=== PATIENT | male | born 1960 | race Asian ===

== ENCOUNTER 2020-03-16 11:30 | Emergency (ER) | payer BC ==
[2020-03-16 11:39] VITALS: BP 155/81; PULSE 71; TEMP 98.2; BMI 22.8
[2020-03-16] MEDS ORDERED: DIPHTH,PERTUSS(ACELL),TET 0.5 ML DISP.SYRIN IM ONE ×2 (12:13→12:14)
--- NOTE | 2020-03-16 12:19 | PDOC ---
History of Present Illness - General Chief Complaint: Laceration Stated Complaint: LACERATION Time Seen by Provider: 03/16/20 11:52 History Source: Patient Exam Limitations: No Limitations - History of Present Illness Initial Comments: 03/16/20 12:16 HISTORY OF PRESENT ILLNESS: 59-year-old male history of diabetes who presents emergency department for evaluation of laceration to left index finger while using a power circular saw. Patient reports he was cutting wood when he misjudged where the saw was clipping the volar surface of his index finger with a saw. Patient applied dressing to his finger and came to the emergency department for immediate evaluation. Patient is right-hand dominant. No recent travel or sick contacts. PAST MEDICAL HISTORY: See HPI SURGICAL HISTORY: Denies ALLERGIES: No known drug allergies REVIEW OF SYSTEMS General/Constitutional: Denies fever or chills. Denies weakness, weight change. HEENT: Denies change in vision. Denies ear pain or discharge. Denies sore throat. Cardiovascular: Denies chest pain or shortness of breath. Respiratory: Denies cough, wheezing, or hemoptysis. Gastrointestinal: Denies nausea, vomiting, diarrhea or constipation. Denies rectal bleeding. Genitourinary: Denies dysuria, frequency, or change in urination. Musculoskeletal: Denies joint or muscle swelling or pain. Denies neck or back pain. Skin and breasts: See HPI Neurologic: Denies headache, vertigo, loss of consciousness, or loss of sensation. Psychiatric: Denies depression or anxiety. Endocrine: Denies increased thirst. Denies abnormal weight change. Hematologic/Lymphatic: Denies anemia, easy bleeding, or history of blood clots. Allergic/Immunologic: Denies hives or skin allergy. Denies latex allergy. PHYSICAL EXAM General Appearance: Well-appearing, appropriately dressed. No apparent distress, no intoxication. Musculoskeletal/Extremities: Normal inspection. FROM including flexion and extension of affected finger. No malrotation present. Normal capillary refill. Pelvis Stable. No CVA tenderness. No tenderness to extremities, pedal edema, swelling, erythema or deformity. Neurovascularly intact. Integumentary: Approximate 2 cm flap laceration present to the volar aspect of the left index finger over the second phalanx. Past History - Medical History Allergies/Adverse Reactions: Allergies Allergy/AdvReac Type Severity Reaction Status Date / Time No Known Allergies Allergy Verified 03/16/20 11:35 Home Medications: Ambulatory Orders Cephalexin Monohydrate [Keflex -] 500 mg PO Q6H #28 capsule 03/16/20 - Psycho-Social/Smoking History Smoking History: Never smoked - Substance Abuse Hx (Audit-C & DAST Scrn) How often the patient has a drink containing alcohol: Never Score: In Men: 4 or > Positive; In Women: 3 or > Positive: 0 Screen Result (Pos requires Nsg. Audit-10AR): Negative *Physical Exam - Vital Signs Last Vital Signs Temp Pulse Resp BP Pulse Ox 98.2 F 71 18 155/81 99 03/16/20 11:35 03/16/20 11:35 03/16/20 11:35 03/16/20 11:35 03/16/20 11:35 Procedures - Consent Consent obtained: Verbal, From Patient - Laceration/Wound Repair Left Volar Finger 2nd digit Wound Length: to 2.5 cm Wound Explored: clean Wound's Depth, Shape: superficial, flap Irrigated w/ Saline: Yes Betadine Prep: Yes Anesthesia: 1% Lidocaine Amount of Anesthetic (ccs): 5 (Ring block) Wound Debrided: minimal Wound Repaired With: Sutures Suture Size/Type: 5:0 Number of Sutures: 3 Layer Closure: No Sterile Dressing Applied: Yes Splint Applied: Yes Sling Applied: Yes Progress: 03/16/20 12:19 Patient tolerated well. Medical Decision Making - Medical Decision Making 03/16/20 12:19 A/P: 59-year-old male with laceration to left index finger while using a power saw Approximate 2 cm flap laceration to the volar aspect of the left index finger over the second phalanx Full flexion and extension of left index finger without difficulty Capillary refill and sensation distal to injury are within normal limits Laceration repair-see procedure note for details [facility] Discharge home with prescription for Keflex as patient is diabetic Portions of this note have been documented using voice recognition software. As a result, errors may occur in the purchasing administrator process. Effort has been made to correct all grammatical and purchasing administrator error, but some may have been missed which may produce sporadic inaccurate purchasing administrator or nonsensical phrases. 03/16/20 12:20 Discharge - Discharge Information Problems reviewed: Yes Clinical Impression/Diagnosis: Laceration of left index finger Qualifiers: Encounter type: initial encounter Damage to nail status: without damage Foreign body presence: without foreign body Qualified Code(s): S61.211A - Laceration without foreign body of left index finger without damage to nail, initial encounter Condition: Stable Disposition: HOME - Admission No - Additional Discharge Information Prescriptions: Cephalexin Monohydrate [Keflex -] 500 mg PO Q6H #28 capsule - Follow up/Referral Referrals: Yfn Dubois MD [Primary Care Provider] - - Patient Discharge Instructions Additional Instructions: Keep wound clean and dry Avoid strenuous activity/exercise to create a hot or sweaty environment until sutures are removed Reapply bacitracin ointment 2 times a day until sutures are removed Return to emergency Department or private physician in 7-10 days for suture removal May use Tylenol or Motrin for pain relief Return immediately to emergency department for redness, swelling, pain, or signs of infection - Post Discharge Activity
== END 2020-03-16 12:18 | disposition home or self-care (01) ==
LOC: JERFT 11:30
PROC: 0HQGXZZ Repair Left Hand Skin, External Approach (ICD-10-PCS; principal; 2020-03-16)
PROC: 3E0234Z Introduction of Serum, Toxoid and Vaccine into Muscle, Percutaneous Approach (ICD-10-PCS; 2020-03-16)
DX: S61.211A Laceration without foreign body of left index finger without damage to nail, initial encounter (principal)
CPT/HCPCS: 90715; 99284-25

== ENCOUNTER 2020-03-25 17:22 | Emergency (ER) | payer BC ==
--- NOTE | 2020-03-25 17:30 | PDOC ---
Rapid Medical Evaluation Time Seen by Provider: 03/25/20 17:29 Medical Evaluation: Allergies Allergy/AdvReac Type Severity Reaction Status Date / Time No Known Allergies Allergy Verified 03/16/20 11:35 03/25/20 17:29 I performed a brief in-person evaluation of this patient. Pt is a 59 y/o male who presents to the ED for suture removal to the L index finger. No complaints. H/o HTN, DM. Pertinent physical exam findings: Left IF wound well healing, no sign of infection I have ordered the following: none Patient to proceed to ED for further evaluation. Discharge Disposition - Diagnosis Visit for suture removal - Referrals Referrals: Louann Adams MD [Primary Care Provider] - - Patient Instructions - Post Discharge Activity
[2020-03-25 17:33] VITALS: BP 154/89; PULSE 78; TEMP 98.4; BMI 23.1
--- NOTE | 2020-03-25 17:46 | PDOC ---
History of Present Illness - General Chief Complaint: Suture/Staple Removal(Here) Stated Complaint: SUTURE REMOVAL Time Seen by Provider: 03/25/20 17:29 - History of Present Illness Initial Comments: 03/25/20 17:44 59-year-old male presents for evaluation of suture removal left second finger from sutures placed 9 days ago. He has had no sequelae since suture placement. Past History - Medical History Allergies/Adverse Reactions: Allergies Allergy/AdvReac Type Severity Reaction Status Date / Time No Known Allergies Allergy Verified 03/16/20 11:35 Home Medications: Ambulatory Orders Cephalexin Monohydrate [Keflex -] 500 mg PO Q6H #28 capsule 03/16/20 COPD: No Diabetes: Yes HTN: Yes - Psycho-Social/Smoking History Smoking History: Never smoked Have you smoked in the past 12 months: No - Substance Abuse Hx (Audit-C & DAST Scrn) How often the patient has a drink containing alcohol: Never Score: In Men: 4 or > Positive; In Women: 3 or > Positive: 0 Screen Result (Pos requires Nsg. Audit-10AR): Negative In the last yr the pt used illegal drug/Rx for NonMed reason: No Score: Yes response is considered Positive: 0 Screen Result (Positive result requires Nsg. 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 They are in agreement with the treatment plan all questions were answered to their satisfaction. Understanding for follow-up without fail was also conveyed to the patient. Again they are in agreement. Discharge - Discharge Information Problems reviewed: Yes Clinical Impression/Diagnosis: Visit for suture removal Condition: Stable Disposition: HOME - Admission No - Follow up/Referral Referrals: Louann Adams MD [Primary Care Provider] - Hunter Castillo MD [Staff Physician] - - Patient Discharge Instructions Additional Instructions: Please leave the area clean and dry for the next 48 hours. After 48 hours you may gently wash the area with soap and water and pat it dry and leave it open to air. Do not apply any ointment such as bacitracin or Neosporin. Without fail please follow-up with your primary care physician in 2 to 3 days for a wound check. Return to the emergency room for further issues. He may follow-up with orthopedic hand surgery in 1 to 2 days for wound check or return to the emergency room in 48 hours should you have further issues and are unable to get an appointment with orthopedics hand surgery. - Post Discharge Activity
--- OUTSIDE RECORDS SUMMARY | 2020-03-25 18:25 | XMS ---
:1960 [facility] Support Name Relationship Address Phone [email or web address] [place] [address] SHANEKA THACKER [address] [place] [address] SHANEKA THACKER Spouse [address] [place] [address] Re-disclosure Warning The records that you are about to access may contain information from federally- assisted alcohol or drug abuse programs. If such information is present, then the following federally mandated warning applies: This information has been disclosed to you from records protected by federal confidentiality rules (42 CFR part 2). The federal rules prohibit you from making any further disclosure of this information unless further disclosure is expressly permitted by the written consent of the person to whom it pertains or as otherwise permitted by 42 CFR part 2. A general authorization for the release of medical or other information is NOT sufficient for this purpose. The Federal rules restrict any use of the information to criminally investigate or prosecute any alcohol or drug abuse patient.The records that you are about to access may contain highly sensitive health information, the redisclosure of which is protected by Article 27-F of the [facility] Public Health law. If you continue you may haveaccess to information: Regarding HIV / AIDS; Provided by facilities licensed or operated by the [facility] Office of Mental Health; or Provided by the [facility] Office for People With Developmental Disabilities. If such information is present, then the following [facility] mandated warning applies: This information has been disclosed to you from confidential records which are protected by state law. State law prohibits you from making any further disclosure of this information without the specific written consent of the person to whom it pertains, or as otherwise permitted by law. Any unauthorized further disclosure in violation of state law may result in a fine or custodial sentence or both. A general authorization for the release of medical or other information is NOT sufficient authorization for further disclosure. Allergies and Adverse Reactions Type Description Substance Reaction Status Data Source(s ) No Known Allergies No Known Allergies No Known Allergies eCW3 ([facility]) No Information No Information No Information eC W2 ([facility]) No Known Allergies No Known Allergies No Known Allergies eCW2 ([facility]) No Known Allergies No Known Allergies No known allergies eCW3 ([facility]) Encounters Encounter Providers Location Date Indications Data Source(s ) Outpatient [place] [facility] 11/11/2018 eCW3 ([facility] A28 12:00:00 AM [facility] EDT - Care) 11/11/2018 12:00:00 AM EDT Outpatient [facility] 09/07/2018 eCW3 ([facility] A28 12:00:00 AM [facility] EST - Care) 09/07/2018 12:00:00 AM EST [facility] 04/14/2018 eCW2 ([facility] 04/14/2018 eCW2 ([facility] 12:00:00 AM [facility] EDT Care) [facility] 04/11/2018 eCW2 ([facility] 12:00:00 AM [facility] EDT Care) [facility] 04/08/2018 eCW2 ([facility] 12:00:00 AM [facility] EDT Care) [facility] 02/25/2018 eCW2 ([facility] 12:00:00 AM [facility] EDT Care) [facility] 2017 eCW2 ([facility] 12:00:00 AM [facility] EDT Care) [facility] 12/07/2017 eCW2 ([facility] 12:00:00 AM [facility] EDT Care) [facility] 11/04/2017 eCW2 ([facility] 12:00:00 AM [facility] ED[facility]) [facility] 10/27/2017 eCW2 ([facility] 12:00:00 [facility] ED[facility]) [facility] 10/26/2017 eCW2 ([facility] 12:00:00 AM [facility] ED[facility] Care) [facility] 08/31/2017 eCW2 ([facility] 12:00:00 AM [facility] EST Care) [facility] 08/31/2017 eCW2 ([facility] 12:00:00 AM [facility] EST Care) [facility] 07/09/2017 eCW2 ([facility] 12:00:00 AM [facility] EST Care) [facility] 05/24/2017 eCW2 ([facility] 12:00:00 AM [facility] EST Care) [facility] 05/06/2017 eCW2 ([facility] 12:00:00 AM [facility] EDT Care) [facility] 05/04/2017 eCW2 ([facility] 12:00:00 AM [facility] EDT Care) [facility] 04/02/2017 eCW2 ([place] [facility] 12:00:00 AM [facility] EDT Care) [facility] 01/23/2017 eCW2 ([facility] 12:00:00 AM [facility] EDT Care) [facility] 10/15/2016 eCW2 ([facility] 12:00:00 AM [facility] ED[facility] Care) [facility] 09/25/2016 eCW2 ([facility] 12:00:00 AM [facility] ED[facility] Care) [facility] 09/23/2016 eCW2 ([facility] 12:00:00 AM [facility] ED[facility] Care) [facility] 09/23/2016 eCW2 ([facility] 12:00:00 AM [facility] EDT Care) [facility] 06/17/2016 eCW2 ([facility] 12:00:00 AM [facility] EST Care) [facility] 03/20/2016 eCW2 ([facility] 12:00:00 AM [facility] EDT Care) [facility] 03/18/2016 eCW2 ([facility] 12:00:00 AM [facility] EDT Care) [facility] 02/12/2016 eCW2 ([facility] 12:00:00 AM [facility] EDT Care) [facility] 01/07/2016 eCW2 ([facility] 12:00:00 AM [facility] EDT Care) [facility] 01/01/2016 eCW2 ([facility] 12:00:00 AM [facility] ED[facility] Care) [facility] 12/31/2015 eCW2 ([facility] 12:00:00 AM [facility] EDT Care) [facility] 11/05/2015 eCW2 ([facility] 12:00:00 AM [facility] EDT Care) [facility] 11/04/2015 eCW2 ([facility] 12:00:00 AM [facility] EDT Care) [facility] 05/19/2014 eCW2 ([facility] 12:00:00 AM [facility] EST Care) [facility] 05/12/2014 eCW2 ([facility] 12:00:00 AM [facility] EDT Care) [facility] 05/12/2014 eCW2 ([facility] 12:00:00 AM [facility] EDT Care) [facility] 05/12/2014 eCW2 ([facility] 12:00:00 AM [facility] EDT Care) [facility] 05/05/2014 eCW2 ([facility] 12:00:00 AM [facility] EDT Care) [facility] 03/31/2014 eCW2 ([facility] 12:00:00 AM [facility] EDT Care) [facility] 03/22/2014 eCW2 ([facility] 12:00:00 AM [facility] EDT Care) [facility] 03/15/2014 eCW2 ([facility] 12:00:00 AM [facility] EDT Care) Immunizations Vaccine Date Status Description Data Source(s) Pneumococcal conjugate PCV 09/07/2018 completed e CW3 ([facility] [place] [facility] 08:30:00 AM [facility]) New in 2011. IIV4 04/08/2018 completed eCW2 ([facility] 12:02:00 PM ED Health Care) No Known Immunizations completed eCW2 ([facility]) Medications Medication Brand Start Product Dose Route Administrative Pharmacy [facility] Indications Reaction Description Data Name Date Form Instructions Instructions Source(s) Famotidine Famoti .0 active Famotidi ne eCW3 20 MG Oral dine 2018 {tabl 20 MG ([facility] Tablet 20 MG 12:00: et_at [place] 00 AM _bedt Health EST maria esther} Care) Famotidine Famoti .0 active Famotidi ne eCW3 20 MG Oral dine 2018 {tabl 20 MG ([facility] Tablet 20 MG 12:00: et_at [place] 00 AM _bedt Health EST maria esther} Care) atorvastati Atorva .0 active Atorvas tatin eCW3 n 40 MG statin 2018 {tabl Calcium 40 (Hu dson Oral Tablet Calciu 12:00: et} MG [facility] r Atorvastati m 40 00 AM Health n Calcium MG EDT Care) 40 MG atorvastati Atorva .0 active Atorvas tatin eCW3 n 40 MG statin 2018 {tabl Calcium 40 (Hu dson Oral Tablet Calciu 12:00: et} MG [facility] r Atorvastati m 40 00 AM Health n Calcium MG EDT Care) 40 MG Metformin Metfor 04/08/ active 1 tablet eCW2 hydrochlori min 2018 with a meal ( [facility] de 1000 MG HCl 12:00: [place] Oral Tablet 1000 00 AM Health Metformin mg EDT Care) HCl 1000 mg Metformin Metfor .0 active Metformin eCW3 hydrochlori min 2018 {tabl HCl 1000 mg ([facility] de 1000 MG HCl 12:00: et_wi [place] [facility]) HCl 1000 mg Metformin Metfor .0 active Metformin eCW3 hydrochlori min 2018 {tabl HCl 1000 mg ([facility] de 1000 MG HCl 12:00: et_wi [place] [facility]} Care) HCl 1000 mg Levothyroxi Synthr 10/27/ active Synthro id 50 eCW3 ne Sodium oid 50 2018 MCG ([facility] 0.05 MG MCG 12:00: [place] Oral Tablet 00 AM Health [Synthroid] EDT Care) Synthroid 50 MCG Levothyroxi Synthr 10/27/ active Synthro id 50 eCW3 ne Sodium oid 50 2018 MCG ([facility] 0.05 MG MCG 12:00: [place] Oral Tablet 00 AM Health [Synthroid] EDT Care) Synthroid 50 MCG Levothyroxi Synthr 10/27/ active 1 table t on eCW2 ne Sodium oid 50 2018 an empty (Hud son 0.05 MG MCG 12:00: stomach in [facility] r Oral Tablet 00 AM the morning Health [Synthroid] EDT Care) Synthroid 50 MCG Flonase 50 Flonas 10/26/ active 2 puff i n eCW2 MCG/ACT e 50 2018 each nostril (H[facility] son MCG/AC 12:00: [place] T 00 AM Health EDT Care) Ibuprofen Ibupro 10/26/ active Ibuprofen eCW3 600 MG Oral fen 2018 600 MG ([place] Tablet 600 MG 12:00: [place] 00 AM Health EDT Care) Ibuprofen Ibupro 10/26/ active 1 tablet eCW2 600 MG Oral fen 2018 with food or ([facility] Tablet 600 MG 12:00: milk as [place] 00 AM needed Health EDT Care) FLONASE 50 FLONAS 10/26/ 2.0 active FLONASE 50 eCW3 MCG/ACT E 50 2017 {puff MCG/ACT ([facility] MCG/AC 12:00: _in_e [place] T 00 AM ach_n Health EDT ostri Care) l} Ibuprofen Ibupro 10/26/ active Ibuprofen eCW3 600 MG Oral fen 2018 600 MG ([place] [facility] Tablet 600 MG 12:00: [place] 00 AM Health EDT Care) FLONASE 50 FLONAS 10/26/ 2.0 active FLONASE 50 eCW3 MCG/ACT E 50 2017 {puff MCG/ACT ([facility] MCG/AC 12:00: _in_e [place] T 00 AM ach_n Health EDT ostri Care) l} Lisinopril Lisino 09/23/ active 1 tablet eCW2 20 MG Oral pril 2016 ([facility] Tablet 20 MG 12:00: [place] 00 AM Health EDT Care) Lisinopril Lisino 15/ 1.0 active Lisinopr il eCW3 20 MG Oral pril 2016 {tabl 20 MG ([facility] Tablet 20 MG 12:00: et} [place] 00 AM Health EDT Care) Lisinopril Lisino 15/ 1.0 active Lisinopr il eCW3 20 MG Oral pril 2016 {tabl 20 MG ([facility] Tablet 20 MG 12:00: et} [place] 00 AM Health EDT Care) Lancets - Lancet 12/30/ active Lancets - eCW3 s - 2015 ([facility] 12:00: [place] 00 AM Health EDT Care) Isopropyl Isopro 12/30/ active Isopropyl eCW3 Alcohol pyl 2016 Alcohol ([facility] Wipes 70 % Alcoho 12:00: Wipes 70 % [place] l 00 AM Health Wipes EDT Care) 70 % Glucose UNK 12/30/ active As Directed e CW2 Test Strips 2015 ([facility] Compatiable 12:00: [place] with 00 AM Health Patients EDT Care) Machine Isopropyl Isopro 12/30/ active as direct ed eCW2 Alcohol pyl 2015 ([facility] Wipes 70 % Alcoho 12:00: [place] l 00 AM Health Wipes EDT Care) 70 % Isopropyl Isopro 12/30/ active Isopropyl eCW3 Alcohol pyl 2015 Alcohol ([facility] Wipes 70 % Alcoho 12:00: Wipes 70 % [place] l 00 AM Health Wipes EDT Care) 70 % Glucose UNK 12/30/ active Glucose Test eCW3 Test Strips 2016 Strips ([place] [facility] Compatiable 12:00: Compatiable [place] with 00 AM with Health Patients EDT Patients Care) Machine Machine Lancets - Lancet 12/30/ active Lancets - eCW3 s - 2015 ([facility] 12:00: [place] 00 AM Health EDT Care) Glucometer UNK 12/30/ active As directe d eCW2 NIDD 2015 ([facility] 12:00: [place] 00 AM Health EDT Care) Lancets - Lancet 12/30/ active as direct ed eCW2 s - 2016 ([facility] 12:00: [place] 00 AM Health EDT Care) Glucose UNK 12/30/ active Glucose Test eCW3 Test Strips 2016 Strips ([place] [facility] Compatiable 12:00: Compatiable [place] with 00 AM with Health Patients EDT Patients Care) Machine Machine Unknown complet eCW2 Medications ed ([facility]) Insurance Providers Payer name Policy type / Policy ID Covered Covered republican's Policy Plan Coverage type republican ID relationship to Hanson Information hanson PPO [id number] SP [id number] BC PPO [id number] SP [id number] PPO [id number] SP [id number] Problems, Conditions, and Diagnoses Code Display Name Description Problem Effective Data Type Dates Source(s) E78.5 Dyslipidemia Dyslipidemia Problem 09/07/2018 eCW3 12:00:00 AM ([facility]) K21.9 Gastroesophageal reflux Gastroesophageal reflux Problem 09/07/2018 eCW3 disease without disease without 12:00:00 AM ( dson esophagitis esophagitis [facility]) E03.9 Adult hypothyroidism Adult hypothyroidism Problem 04/08 eCW3 12:00:00 AM ([facility]) E03.9 Adult hypothyroidism Adult hypothyroidism Problem 04/08 eCW2 12:00:00 AM ([facility]) E03.9 Hypothyroidism Hypothyroidism Problem 10/26/2017 eCW3 (acquired) (acquired) 12:00:00 AM ([facility]) E03.9 Hypothyroidism Hypothyroidism Problem 10/26/2017 eCW2 (acquired) (acquired) 12:00:00 AM ([facility]) H52.4 Presbyopia of both eyes Presbyopia of both eyes Problem 05/31/2017 eCW3 12:00:00 AM ([facility]) H25.13 Nuclear age-related Nuclear age-related Problem 017 eCW3 cataract, both eyes cataract, both eyes 12:00:0 0 AM ([facility]) H52.4 Presbyopia of both eyes Presbyopia of both eyes Problem 05/31/2017 eCW2 12:00:00 AM ([facility]) H25.13 Nuclear age-related Nuclear age-related Problem 017 eCW2 cataract, both eyes cataract, both eyes 12:00:0 0 AM ([facility]) I10 Hypertension Hypertension Problem 09/23/2016 eCW3 12:00:00 AM ([facility]) I10 Hypertension Hypertension Problem 09/23/2016 eCW2 12:00:00 AM ([facility]) K59.00 Constipation Constipation Problem 06/17/2016 eCW2 12:00:00 AM ([facility]) E78.1 Hypertriglyceridemia Hypertriglyceridemia Problem 03/24 eCW3 12:00:00 AM ([facility]) E78.1 Hypertriglyceridemia Hypertriglyceridemia Problem 03/24 eCW2 12:00:00 AM ([facility]) E11.9 Type 2 diabetes Type 2 diabetes Problem 12/31/2015 eCW3 mellitus mellitus 12:00:00 AM ([facility]) E11.9 Type 2 diabetes Type 2 diabetes Problem 12/31/2015 eCW2 mellitus mellitus 12:00:00 AM ([facility]) XX No diagnosis Standing Order Problem 12/31/2015 eCW2 12:00:00 AM ([facility]) 272.4 Hyperlipidemia Hyperlipidemia Problem 05/19/2014 eCW2 12:00:00 AM ([facility]) Surgeries/Procedures Procedure Description Date Indications Data Source(s) RMVL IMPACTED CERUMEN 04/08/2018 eCW2 ( [facility] SPX 1/BOTH EARS 12:00:00 AM Health Care) EDT GLUC BLD GLUC MNTR DEV 04/08/2018 eCW2 ([facility] CLEARED FDA SPEC HOME 12:00:00 AM Health Care) USE EDT COLLECTION CAPILLARY 04/08/2018 eCW2 ([facility] BLOOD SPECIMEN 12:00:00 AM Health Care) EDT A-Influenza 04/08/2018 eCW2 ([facility] mark anthony [employer] 12:00:00 AM Health Care) EDT IM ADM THRU 18YR ANY 04/08/2018 eCW2 ([facility] RTE 1ST/ONLY COMPT 12:00:00 AM Health Ca re) VAC/TOX EDT SCREENING TEST VISUAL 04/08/2018 eCW2 ( [facility] ACUITY QUANTITATIVE 12:00:00 AM Health C are) BILAT EDT HEMOGLOBIN 04/08/2018 eCW2 ([facility] mark anthony GLYCOSYLATED A1C 12:00:00 AM Health Care ) EDT No Known procedures No Known procedures e CW2 ([facility]) Results ID Date Data Source Finger Stick Glucose with 09/07/2018 10:25:38 AM EST eCW3 ([facility] Glucometer, In House.1 Care) Name Value Range Interpretation Code Description Data Radha rce(s) Supporting Document(s ) 162 Capillary Glucose eCW3 ([facility]) Capillary eCW3 ([facility] GlucoseTest #2 [facility]) Capillary Glucose eCW3 ([facility] Test#3 [facility]) ID Date Data Source Glyco-Hemoglobin A1c, In 09/07/2018 10:25:28 AM EST eCW3 ([facility]) House.0 Name Value Range Interpretation Description Data Sup porting Code Source(s) Document(s ) Hemoglobin 9.5 Glyco-Hemoglobi eCW3 ([facility] A1c/Hemoglobin n A1C [facility] .total in Care) Blood . eCW3 ([facility]) ID Date Data Source Finger Stick Glucose with 04/08/2018 12:00:00 AM EDT eCW2 ([facility] Glucometer, In House.6 Care) Name Value Range Interpretation Code Description Data Radha rce(s) Supporting Document(s ) Capillary eCW2 ([facility] GlucoseTest #2 [facility]) 120 65 mg/dL - Capillary eCW2 ([facility] 110 mg/dL Glucose [facility]) Capillary eCW2 ([facility] Glucose Test#3 [facility]) ID Date Data Source COMPREHENSIVE METABOLIC ([id number] 04/08/2018 12:00:00 AM eC W2 ([facility] EDT Care) Name Value Range Interpretation Description Data Sup porting Code Source(s) Document(s ) Albumin 5.1 3.5-5.2 Albumin eCW2 [Mass/volume] in ([facility] or [facility]) Globulin 2.4 1.7-3.7 Globulin eCW2 [Mass/volume] in ([facility]) Protein 7.5 5.9-8.4 Total Protein eCW2 [Mass/volume] in ([facility] or [facility]) Chloride 101 96-108 Chloride eCW2 [Moles/volume] in ([facility] or [facility]) Potassium 3.9 3.5-5.5 Potassium eCW2 [Moles/volume] in ([facility] or [facility]) Albumin/Globulin 2.1 1.1-2.9 A/G Ratio eCW2 [Mass Ratio] in ([facility] or [facility]) Sodium 141 135-147 Sodium eCW2 [Moles/volume] in ([facility] or [facility]) Carbon dioxide, 24 22-29 CO2 eCW2 total ([facility] [Moles/volume] in [place] Serum or [facility]) Mycoplasma 13.2 10.0-28 BUN/Creat eCW2 pneumoniae DNA .0 Ratio ([facility] [Units/volume] in [place] Blood by Probe and Health target Care) amplification method Glomerular 110 >or=60 e-GFR, eCW2 filtration ([facility] rate/1.73 sq M [place] predicted among Health blacks [Volume Care) Rate/Area] in Serum or Plasma by Creatinine-based formula (MDRD) Urea nitrogen 12 6-20 BUN eCW2 [Mass/volume] in ([facility] Serum or [facility]) Creatinine 0.91 0.67-1. Creatinine eCW2 [Mass/volume] in 31 ([facility] or [facility]) Glomerular 95 >or=60 e-GFR eCW2 filtration ([facility] rate/1.73 sq [place] M.predicted [Volume Health Rate/Area] in Serum Care) or Plasma by Creatinine-based formula (MDRD) Glucose 119 70-99 Glucose eCW2 [Mass/volume] in ([facility] Serum or [facility]) Alkaline 111 40-156 Alk Phos eCW2 phosphatase ([facility] [Enzymatic [place] activity/volume] in [facility] Serum or Plasma Care) Aspartate 27 <40 AST eCW2 aminotransferase ([facility] [Enzymatic [place] activity/volume] in [facility] Serum or Plasma Care) Calcium 9.5 8.6-10. Calcium eCW2 [Mass/volume] in 4 ([facility] or [facility]) Alanine 42 <41 ALT eCW2 aminotransferase ([facility] [Enzymatic [place] activity/volume] in [facility] Serum or Plasma Care) Bilirubin.total 0.6 <1.2 Bilirubin, eCW2 [Mass/volume] in Total ([facility] or [facility]) ID Date Data Source MICROALBUMIN, RAND 04/08/2018 12:00:00 AM EDT eCW2 ([facility] URINE/CREAT (BIOREFERENCE).4 Care) Name Value Range Interpretation Description Data Sup porting Code Source(s) Document(s ) Microalbumin <1.2 Not MICROALBUMIN,R eCW2 ([facility] [Mass/volume] Estab. ANDOM [facility] in Urine Care) Fungus 8.5 <30.0 Album/creat eCW2 ([facility] identified in ratio, urine [facility] Unspecified Care) specimen by Fungus stain Microalbumin 140.6 Not CREAT.URN.TIME eCW2 ([facility] [Mass/volume] Estab. D/RAND [facility] in Urine Care) ID Date Data Source URINALYSIS, ROUTINE.3 04/08/2018 12:00:00 AM EDT eCW2 ([facility]) Name Value Range Interpretation Description Data Sup porting Code Source(s) Document(s ) 1.017 1.003-1.03 Specific eCW2 0 [place] Ur ([facility]) Protein NEGATIVE NEGATIVE Protein, Urine eCW2 [Mass/volum ([facility] e] in Urine [place] by [facility]) test strip Glucose NEGATIVE NEGATIVE Glucose, Urine eCW2 [Mass/volum ([facility] e] in Urine [place] by [facility]) test strip NEGATIVE NEGATIVE Ketone, Urine eCW2 ([facility]) 5.5 5.0-8.0 pH Urine eCW2 ([facility]) NEGATIVE NEGATIVE Nitrites Urine eCW2 ([facility]) NONE NONE Crystals Urine eCW2 ([facility]) NEGATIVE NEGATIVE Blood, Urine eCW2 ([facility]) 0.2 0.2-1.0 Urobilinogen eCW2 Urine ([facility]) NEGATIVE NEGATIVE Bilirubin, eCW2 Urine ([facility]) NONE SEEN NONE SEEN RBC, Urine eCW2 ([facility]) NONE NONE-FEW Epithelial eCW2 Cells, Ur ([facility]) 0-4 0-4 Cast, Hyaline, eCW2 Urine ([facility]) NONE SEEN 0-1 Cast, RBC, eCW2 Urine ([facility]) 0-4 0-4 WBC, Urine eCW2 ([facility]) NEGATIVE NEGATIVE Leukocyte eCW2 Esterase ([facility]) NONE NONE-FEW Bacteria, eCW2 Urine ([facility]) NONE NONE Crystal Amt. eCW2 Urine ([facility]) NONE SEEN 0-1 Cast, eCW2 Granular, Ur ([facility]) Color of YELLOW YELLOW, Color eCW2 Urine STRAW, ([facility]) CLEAR CLEAR Character eCW2 ([facility]) ID Date Data Source TSH ([id number] 04/08/2018 12:00:00 AM EDT eCW2 ([facility]) Name Value Range Interpretation Description Data Sup porting Code Source(s) Document(s ) Carbamazepine 4.760 0.178-4. TSH eCW2 ([facility] [Mass/volume] in [address] [place] [address] Serum or Plasma Care) ID Date Data Source LIPID PANEL ([facility] 04/08/2018 12:00:00 AM EDT eCW2 ([facility] [employer]).1 Care) Name Value Range Interpretation Description Data Sup porting Code Source(s) Document(s ) Deprecated 44 >40 HDL CHOL., eCW2 ([facility] [Mass/volume] Care) in Serum or Plasma Deprecated 178 <200 Cholesterol eCW2 ([facility] [Mass/volume] Care) in Serum or Plasma Deprecated 25 >14 HDL as % of eCW2 ([facility] Cholesterol [facility] [Mass/volume] Care) in Serum or Plasma Deprecated 4.0 <7.4 Chol/HDL Ratio eCW2 ([facility] [Mass/volume] Care) in Serum or Plasma Deprecated 2.52 <3.56 LDL/HDL Ratio eCW2 ([facility] [Mass/volume] Care) in Serum or Plasma Deprecated 115 <150 Triglycerides eCW2 ([facility] [Mass/volume] Care) in Serum or Plasma Deprecated 111 <100 LDL Cholesterol eCW2 ([facility] [Mass/volume] Care) in Serum or Plasma Deprecated 23 7-32 VLDL, CALCULATED eCW2 ([facility] [Mass/volume] Care) in Serum or Plasma Deprecated 134 <130 Non-HDL eCW2 ([facility] [Mass/volume] Care) in Serum or Plasma ID Date Data Source Glyco-Hemoglobin A1c, In 04/08/2018 12:00:00 AM EDT eCW2 ([facility]) House.0 Name Value Range Interpretation Description Data Sup porting Code Source(s) Document(s ) Hemoglobin 7.6 <6.5% - Glyco-Hemoglob eCW2 ([facility] A1c/Hemoglobin in A1C [facility] .total in Care) Blood . eCW2 ([facility]) Procedure Social History Code Duration Value Status Description Data Source(s ) Smoking Unknown if ever completed Unknown if ever eCW3 ([facility] smoked smoked Health Care) Smoking Unknown if ever completed Unknown if ever eCW2 ([facility] smoked smoked Health Care) Smoking Unknown if ever completed Unknown if ever eCW2 ([facility] smoked smoked Health Care) Smoking Unknown if ever completed Unknown if ever eCW3 ([facility]) Vital Signs ID Date Data Source UNK Name Value Range Interpretation Code Description Data Source(s) Diastolic blood 78 mm[Hg] 78 mm[Hg] eCW3 ([facility]) Systolic blood 149 mm[Hg] 149 mm[Hg] eCW3 ([facility]) Body temperature 98.6 [degF] 98.6 [degF] eCW3 ( [facility]) Heart rate 18 /min 18 /min eCW3 ([facility]) Body mass index 22.73 kg/m2 22.73 kg/m2 eCW3 ([facility] (BMI) [Ratio] [facility]) Body weight 143.0 143.0 [lb_av] eCW3 ([place] [lb_av] [facility]) Body height 66.5 [in_i] 66.5 [in_i] eCW3 ([facility]) Diastolic blood 62 mm[Hg] 62 mm[Hg] eCW3 ([facility]) Systolic blood 167 mm[Hg] 167 mm[Hg] eCW3 ([facility]) Body temperature 97.8 [degF] 97.8 [degF] eCW3 ( [facility]) Heart rate 20 /min 20 /min eCW3 ([facility]) Body mass index 23.43 kg/m2 23.43 kg/m2 eCW3 ([facility] (BMI) [Ratio] [facility]) Body weight 147.4 147.4 [lb_av] eCW3 ([place] [lb_av] [facility]) Body height 66.5 [in_i] 66.5 [in_i] eCW3 ([facility]) Diastolic blood 69 mm[Hg] 69 mm[Hg] eCW2 ([facility]) Systolic blood 162 mm[Hg] 162 mm[Hg] eCW2 ([facility]) Body temperature 98.6 [degF] 98.6 [degF] eCW2 ( [facility]) Heart rate 18 /min 18 /min eCW2 ([facility]) Body weight 155.4 155.4 [lb_av] eCW2 ([place] [facility] [lb_av] [facility]) Body height 66.5 [in_us] 66.5 [in_us] eCW2 ([facility]) Patient Treatment Plan of Care Planned Activity Planned Date Details Description Data Source (s) Famotidine 20 MG Oral 09/07/2018 12:00:00 eCW3 ([place] [facility]) Metformin hydrochloride 04/08/2018 12:00:00 eCW2 ([place] 1000 MG Oral Tablet [facility]) Metformin hydrochloride 04/08/2018 12:00:00 eCW3 ([facility] 1000 MG Oral Tablet [facility]) Levothyroxine Sodium 0.05 10/27/2017 12:00:00 eCW2 ([place] MG Oral Tablet [facility]) [Synthroid] Lisinopril 20 MG Oral 09/23/2016 12:00:00 eCW2 ([facility] Tablet [facility]) Lancets - 12/31/2015 12:00:00 [facility] Glucose Test Strips 12/31/2015 12:00:00 e CW3 ([place] Compatiable with Patients [facility]) Machine
== END 2020-03-25 17:48 | disposition home or self-care (01) ==
LOC: JERFT 17:22 → JER 17:22 → JERFT 17:48
DX: Z48.02 Encounter for removal of sutures (principal)
CPT/HCPCS: 99281-25

== ENCOUNTER 2021-09-08 19:56 | Observation (INO) | payer BC ==
[2021-09-08 20:02] VITALS: BMI 23.1
[2021-09-08 21:29] LABS: BASO % 0.7 % (0-2.0); EOS % 4.9 % (0-4.5); HEMATOCRIT 42.8 % (35.4-49); HEMOGLOBIN 14.2 GM/dL (11.7-16.9); MCH 28.5 pg (25.7-33.7); MCHC 33.1 g/dl (32.0-35.9); MEAN CELL VOLUME 86.1 fl (80-96); MEAN PLT VOLUME 9.5 fl (7.5-11.1); MONO % 7.6 % (3.8-10.2); NEUT % 57.8 % (42.8-82.8); PLATELET COUNT 148 10^3/uL (134-434); RBC 4.98 M/mm3 (4.00-5.60); RDW 13.3 % (11.9-15.9); WHITE BLOOD COUNT 5.5 K/mm3 (4.0-10.0)
[2021-09-08 21:50] LABS: ALBUMIN 4.3 g/dl (3.4-5.0); BLOOD UREA NITROGEN 20.8 mg/dL (7-18)
[2021-09-08 21:53] LABS: CREATININE 0.9 mg/dL (0.55-1.3)
[2021-09-08 21:55] LABS: BILIRUBIN,TOTAL 0.4 mg/dL (0.2-1); TOT PROT 7.4 g/dl (6.4-8.2)
[2021-09-08] MEDS ORDERED: ASPIRIN 81 MG CHEWABLE TABLETS PO ONE (23:05)
[2021-09-08] MEDS ORDERED: ASPIRIN 81 MG CHEWABLE TABLETS ONE (23:10)
[2021-09-08 23:25] LABS: INR 1.02 (0.83-1.09); PROTHROMBIN TIME (PATIENT) 11.7 SEC (9.7-13.0)
[2021-09-08 23:27] LABS: ACTIVATED PTT 31.8 SECONDS (25.2-36.5)
[2021-09-08] MEDS ORDERED: HEPARIN - 25,000 UNIT in SODIUM CHLORIDE 495 ML IV SCH (23:45)
[2021-09-08] MEDS ORDERED: HEPARIN NA (PORCINE) 5,000 UNITS/ML 1ML VIAL IVPUSH ONE (23:47)
[2021-09-09] MEDS ORDERED: HEPARIN NA (PORCINE) 5,000 UNITS/ML 1ML VIAL ONE (00:30)
[2021-09-09] MEDS ORDERED: ACETAMINOPHEN 325 MG TABLET (FP) PO PRN (03:18)
[2021-09-09] MEDS: LEVOTHYROXINE NA 25 MCG TABLET (FP) PO SCH (07:00)
[2021-09-09 08:21] LABS: BASO % 0.9 % (0-2.0); EOS % 6.3 % (0-4.5); HEMATOCRIT 44.1 % (35.4-49); HEMOGLOBIN 14.3 GM/dL (11.7-16.9); MCH 28.1 pg (25.7-33.7); MCHC 32.4 g/dl (32.0-35.9); MEAN CELL VOLUME 86.9 fl (80-96); MONO % 7.2 % (3.8-10.2); NEUT % 53.6 % (42.8-82.8); PLATELET COUNT 150 10^3/uL (134-434); RBC 5.08 M/mm3 (4.00-5.60); RDW 13.2 % (11.9-15.9); WHITE BLOOD COUNT 4.5 K/mm3 (4.0-10.0)
[2021-09-09 08:38] LABS: CHLORIDE 107 mmol/L (98-107); SODIUM 140 mmol/L (136-145)
[2021-09-09 08:46] LABS: ALBUMIN 3.6 g/dl (3.4-5.0); ANION GAP 4 MMOL/L (8-16); BLOOD UREA NITROGEN 18.9 mg/dL (7-18); CALCIUM 8.4 mg/dL (8.5-10.1); CO2 30 mmol/L (21-32); MAGNESIUM 2.1 mg/dL (1.8-2.4)
[2021-09-09 08:47] LABS: GLUCOSE,RANDOM 149 mg/dL (74-106)
[2021-09-09 08:48] LABS: BILIRUBIN,TOTAL 0.6 mg/dL (0.2-1); TOT PROT 6.6 g/dl (6.4-8.2)
[2021-09-09 08:49] LABS: ALK PHOS 115 U/L (45-117); CHOLESTEROL 139 mg/dL (50-200); CREATININE 0.9 mg/dL (0.55-1.3); HDL CHOLESTEROL 41 mg/dL (40-60); SGOT/AST 25 U/L (15-37); SGPT/ALT 52 U/L (13-61); TRIGLYCERIDES 84 mg/dL (0-150)
[2021-09-09 08:50] LABS: LDL CHOLESTEROL (ONLY SJRH) 80 mg/dL (5-100)
[2021-09-09 08:53] LABS: PHOSPHOROUS 2.9 mg/dL (2.5-4.9)
[2021-09-09] MEDS ORDERED: METOPROLOL TARTRATE 25 MG TABLET (FP) ONE (08:56)
[2021-09-09] MEDS ORDERED: LISINOPRIL 5 MG TABLET ONE (08:57)
[2021-09-09] MEDS ORDERED: ASPIRIN 81 MG CHEWABLE TABLETS ONE (08:57)
[2021-09-09] MEDS: ASPIRIN 81 MG CHEWABLE TABLETS PO SCH (09:01)
[2021-09-09] MEDS: INSULIN SLIDING SCALE (NOVOLOG) 1 VIAL SQ SCH ×4 (09:07→21:15)
[2021-09-09] MEDS ORDERED: LISINOPRIL 10 MG TABLET PO SCH (10:00)
[2021-09-09] MEDS ORDERED: METOPROLOL TARTRATE 25 MG TABLET (FP) PO SCH (10:00)
[2021-09-09] MEDS ORDERED: metoPROLOL SUCCINATE 25 MG TAB.SR.24H (FP) PO SCH (10:00)
[2021-09-09] MEDS: LISINOPRIL 20 MG TABLET PO SCH (21:14)
[2021-09-09] MEDS ORDERED: ATORVASTATIN CA 10 MG TABLET (FP) PO SCH (22:00)
[2021-09-09] MEDS ORDERED: ATORVASTATIN CA 80 MG TABLET (FP) PO SCH (22:00)
[2021-09-10] MEDS: INSULIN SLIDING SCALE (NOVOLOG) 1 VIAL SQ SCH ×2 (06:19→11:31)
[2021-09-10] MEDS: LEVOTHYROXINE NA 25 MCG TABLET (FP) PO SCH (06:19)
[2021-09-10 07:50] LABS: BASO % 0.9 % (0-2.0); EOS % 6.7 % (0-4.5); HEMATOCRIT 43.5 % (35.4-49); HEMOGLOBIN 14.1 GM/dL (11.7-16.9); LYMPH % 32.3 % (8-40); MCH 28.2 pg (25.7-33.7); MCHC 32.4 g/dl (32.0-35.9); MEAN CELL VOLUME 86.8 fl (80-96); MEAN PLT VOLUME 9.7 fl (7.5-11.1); MONO % 7.7 % (3.8-10.2); NEUT % 52.4 % (42.8-82.8); PLATELET COUNT 148 10^3/uL (134-434); RBC 5.01 M/mm3 (4.00-5.60); RDW 13.3 % (11.9-15.9); WHITE BLOOD COUNT 4.7 K/mm3 (4.0-10.0)
[2021-09-10 08:13] LABS: CHLORIDE 107 mmol/L (98-107); SODIUM 139 mmol/L (136-145)
[2021-09-10 08:23] LABS: ANION GAP 5 MMOL/L (8-16); BLOOD UREA NITROGEN 21.6 mg/dL (7-18); CALCIUM 8.6 mg/dL (8.5-10.1); CO2 27 mmol/L (21-32); GLUCOSE,RANDOM 184 mg/dL (74-106)
[2021-09-10] MEDS: LISINOPRIL 20 MG TABLET PO SCH ×2 (08:23→11:24)
[2021-09-10 08:24] LABS: ALBUMIN 3.4 g/dl (3.4-5.0)
[2021-09-10 08:27] LABS: CREATININE 0.9 mg/dL (0.55-1.3); SGOT/AST 18 U/L (15-37); SGPT/ALT 46 U/L (13-61)
[2021-09-10 08:29] LABS: BILIRUBIN,TOTAL 0.5 mg/dL (0.2-1); TOT PROT 6.2 g/dl (6.4-8.2)
[2021-09-10 08:30] LABS: ALK PHOS 108 U/L (45-117)
[2021-09-10] MEDS ORDERED: REGADENOSON 0.4 MG/5 ML PRE-FILLED SYRINGE IVPUSH ONE ×3 (09:37→10:00)
[2021-09-10] MEDS ORDERED: ENOXAPARIN NA (PORCINE) 40 MG/0.4 ML DISP.SYRIN SQ SCH (10:00)
[2021-09-10] MEDS: ASPIRIN 81 MG CHEWABLE TABLETS PO SCH (11:23)
[2021-09-10 15:18] VITALS: BP 129/92; PULSE 76; TEMP 98.8
== END 2021-09-10 16:42 | disposition home or self-care (01) ==
LOC: JER 19:56 → INTOOBSV 09-09 01:19 → JERBED 09-09 01:19 → UNDOADMOB 09-09 01:19 → JERBED 09-09 13:36 → J4W 09-09 18:20
PROVIDERS: ADMIT Internal Medicine; ATTEND Nurse Practitioner Family
PROC: 3E023GC Introduction of Other Therapeutic Substance into Muscle, Percutaneous Approach (ICD-10-PCS; principal; 2021-09-09)
PROC: 3E033GC Introduction of Other Therapeutic Substance into Peripheral Vein, Percutaneous Approach (ICD-10-PCS; 2021-09-09)
PROC: 3E033GC Introduction of Other Therapeutic Substance into Peripheral Vein, Percutaneous Approach (ICD-10-PCS; 2021-09-09)
DX: R07.9 Chest pain, unspecified (principal); E11.9 Type 2 diabetes mellitus without complications; I10 Essential (primary) hypertension; E78.00 Pure hypercholesterolemia, unspecified; E07.9 Disorder of thyroid, unspecified; E78.5 Hyperlipidemia, unspecified; Z29.9 Encounter for prophylactic measures, unspecified
CPT/HCPCS: 36415; 71046-TC-FY; 76705-TC; 78452-TC; 80053; 80061; 82550; 82962; 83036; 83690; 83735; 84100; 84443; 84484; 85025; 85610; 85730; 93005; 93010; 93017; 93306-TC; 96365; 96366; 96372; 96375; 99285-25; A9502; C9803; G0378; J1644; J2785; U0003; U0005